=== PATIENT | male | born 1995 | race Caucasian/White ===

== ENCOUNTER 2025-04-12 16:52 | Emergency (ER) | payer BC, SELFPAY ==
--- NOTE | ~2025-04-12 | XR_ITS ---
EXAMINATION: XR chest 1V Exam Date/Time: 04/12/2025 18:51 CDT HISTORY: AMS Comparison: None. RESULT: Lines, tubes, and devices: None. Lungs and pleura: Lordotic positioning. Low volumes with crowding. Cardiomediastinal silhouette: Stable. Other: No acute osseous or upper abdominal finding. IMPRESSION: No acute cardiopulmonary process. Reviewed, dictated and finalized at location K.
--- NOTE | ~2025-04-12 | CT_ITS ---
EXAMINATION: CT brain wo con DATE: 04/12/2025 19:03 INDICATION: AMS . TECHNIQUE: Computed tomography (CT) of the head was performed without intravenous contrast. The mA wa s adjusted according to patient size. Iterative reconstruction technique was employed. The dose-lengt h product was 681.00 mGy-cm. COMPARISON: None. FINDINGS: No acute intracranial hemorrhage or extra-axial fluid collection. No hydrocephalus, mass, or herniation. No acute ischemic infarct. Unremarkable dural venous sinus attenuation. No acute osseous abnormality. Small posterior scalp contusion near the vertex. Small retention cyst/polyp in the right maxillary sinus, trace right mastoid fluid, minimal secretion s/debris in the right sphenoid sinus, the remaining aerated spaces are clear. IMPRESSION: No acute intracranial process. Reviewed, dictated and finalized at location K.
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
[2025-04-12 17:00] VITALS: BP 119/76; PULSE 99; RESP 18; TEMP 36.2; O2SAT 95
--- NOTE | 2025-04-12 17:12 | PC.NURSE ---
Family pulled this RN to the side to state pt has a past history of substance used and abuse States she believes he could have take some thing prior to arrival to ED since no supervision at home at this time. Family requesting drug screen at this time.
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
--- NOTE | 2025-04-12 18:27 | ECG_ITS ---
Test Date: 2025-04-12 19:07:12 Measurements Intervals [place] Rate: 89 P: 33 [place]: 152 QRS: -7 QRSD: 104 T: 30 QT: 345 QTc: 422 Interpretive Statements SINUS RHYTHM No previous ECG available for comparison Electronically Signed On 04-13-2025 11:51:14 CDT by Shakir Barlow M.D.
[2025-04-12 19:12] LABS: Amphetamine Screen Urine Negative (Negative); Barbiturate Screen Urine Negative (Negative); Benzodiazepines Screen Urine Negative (Negative); Cannabinoid Screen Urine Negative (Negative); Cocaine Screen Urine Negative (Negative); Methadone Screen Urine Negative (Negative); Opiate Screen Urine Negative (Negative); Phencyclidine Screen Urine Negative (Negative)
[2025-04-12 19:15] VITALS: O2SAT 99
[2025-04-12 19:20] VITALS: BP 123/75; PULSE 91; RESP 14; O2SAT 96
[2025-04-12 19:22] LABS: Basophils Absolute Auto 0.1 K/mm3 (0.0-0.1); Basophils Percent Auto 0.8 % (0.2-1.2); Eosinophils Absolute Auto 0.1 K/mm3 (0-0.3); Eosinophils Percent Auto 0.8 % (0-4.4); Hematocrit 46.7 % (42.0-52.0); Hemoglobin 15.7 g/dL (14.0-18.0); Immature Granulocyte Absolute 0.03 K/mm3 (0.00-0.031); Immature Granulocyte Percent A 0.4 % (0-0.5); Lymphocytes Absolute Auto 3.13 K/mm3 (0.9-3.2); Lymphocytes Percent Auto 36.7 % (18.3-44.2); Mean Corpuscular HGB Conc 33.6 g/dl (32-36); Mean Corpuscular Hemoglobin 31.2 pg (26-34); Mean Corpuscular Volume 92.7 fl (80-100); Mean Platelet Volume 8.7 fl (7.4-10.4); Monocytes Absolute Auto 0.9 K/mm3 (0.1-0.6); Monocytes Percent Auto 10.6 % (2.6-8.5); Neutrophils Absolute Auto 4.3 K/mm3 (1.3-6.7); Neutrophils Percent Auto 50.7 % (45.5-73.1); Platelet Count Result 422 k/mm3 (150-375); Red Blood Count 5.04 M/mm3 (4.6-6.20); Red Cell Distribution Width 11.8 % (11.5-14.5); White Blood Count 8.5 K/mm3 (4.5-10.0)
[2025-04-12 19:31] LABS: Add Urine Microscopic? NO; Appearance Urine Clear (Clear); Bilirubin Urine Negative (Negative); Blood Urine Negative (Negative); Color Urine Yellow (Yellow); Glucose Urine UA Negative (Negative); Ketones Urine Negative (Negative); Leukocyte Esterase Ur Negative LEU/UL (Negative); Nitrate Urine Negative (Negative); Protein Urine Negative (Negative); Urobilinogen Urine 0.2 mg/dL (<2.0)
[2025-04-12 19:33] LABS: Partial Thromboplastin Time 24.9 Seconds (22.3-36.8)
[2025-04-12 19:35] LABS: Alanine Aminotransferase 87 U/L (6-50); Albumin Level 4.8 g/dL (3.5-5.1); Alkaline Phosphatase 80 U/L (38-126); Anion Gap 18 mmol/L (4-12); Aspartate Amino Transferase 99 U/L (17-59); Bilirubin,Total 0.3 mg/dL (0.2-1.3); Blood Urea Nitrogen 14 mg/dL (9-20); Calcium 9.2 mg/dL (8.4-10.2); Carbon Dioxide 19 mmol/L (22-30); Chloride 106 mmol/L (98-107); Estimated CRCL calculation 131 ml/min; Estimated Glomerular Filt Rate > 60; Glucose 99 mg/dL (65-110); Potassium 4.5 mmol/L (3.4-5.0); Sodium 143 mmol/L (137-145)
[2025-04-12 19:39] LABS: Acetaminophen < 10 ug/mL (10-30); Ethanol 274 mg/dL (<10)
[2025-04-12 19:42] LABS: Salicylate < 1.0 mg/dL (2-20)
[2025-04-12 19:46] VITALS: BP 120/59; PULSE 100; RESP 13; O2SAT 94
[2025-04-12 19:47] LABS: Troponin I < 0.012 ng/mL (0.000-0.034)
--- OUTSIDE RECORDS SUMMARY | 2025-04-12 20:11 | XMS_ITS | Continuity of Care Document ---
Author Organization [facility] Address [address] [place] [address] Phone Care Team Providers Care Residential Recycle Driver Name Role Phone Moi Whitney NP Unavailable Unavailable Advance Directives Directive Yes / No Effective Date File Name No Information Encounters Encounter Description Practice Location Reason(s) For Visit Diagnoses Date Provider Providers Copied on Encounter [facility], [address] [place] [address], [facility], tel:[phone] No Information Chelo Prater. [address] [place] [address], [id number], [place]. tel:[phone] Family History Family Member Type Diagnosis Age At Onset No Information Payers Payer name Insurance type Covered alliance party ID Authoriza tion(s) No Information Social History Type Description Quantity Date Captured Comments Sex Male Smoking Status No Information Chief Complaint And Reason For Visit No Information Reason For Referral Reason For Referral No Information History Of Present Illness Encounter Date Complaint History Of Prese nt Illness No Information Functional Status Date Functional Assessmen t No Information Instructions Date Instruction Additional Infor mation No Information Assessments Type Assessment Date No Information Patient Care Teams Name Effective Dates (start - stop) Status Members No Information
[2025-04-12 20:15] VITALS: PULSE 87; RESP 20; O2SAT 97
[2025-04-12 21:25] VITALS: BP 122/60; PULSE 82; RESP 19; TEMP 36.6; O2SAT 100
== END 2025-04-12 21:27 | disposition home or self-care (01) ==
PROVIDERS: Physician Assistant; Emergency Provider Emergency Medicine
DX: F10.90 Alcohol use, unspecified, uncomplicated (principal); Y90.8 Blood alcohol level of 240 mg/100 ml or more; F19.90 Other psychoactive substance use, unspecified, uncomplicated
CPT/HCPCS: 36415; 70450; 71045; 72131; 80053; 80143; 80179; 80307; 81003; 82077; 84484; 85025; 85610; 85730; 93005; 99284